=== PATIENT | male | born 1955 | race Caucasian/White ===

== ENCOUNTER 2022-01-05 17:40 | Emergency (ER) | payer SELFPAY ==
[2022-01-05 17:46] VITALS: BP 181/111; PULSE 111; RESP 16; TEMP 37.6; O2SAT 96; BMI 35.5
--- NOTE | 2022-01-05 17:47 | XR_ITS ---
PROCEDURE INFORMATION: Exam: XR Chest Exam date and time: 01/05/2022 6:05 PM Age: 66 years old Clinical indication: Cough TECHNIQUE: Imaging protocol: XR of the chest. Views: 1 view. COMPARISON: No relevant prior studies available. FINDINGS: Lungs: Unremarkable. No consolidation. Pleural spaces: Unremarkable. No pleural effusion. No pneumothorax. Heart/Mediastinum: Mild cardiomegaly Bones/joints: Unremarkable. IMPRESSION: No acute process
--- NOTE | 2022-01-05 17:48 | [facility].EDGENADL ---
ED Disposition Clinical Impression: Hyperglycemia Heat causing collapse Qualifiers: Encounter type: initial encounter Qualified Code(s): T67.1XXA - Heat syncope, initial encounter Disposition: Home, Self-Care Condition on Discharge: Fair Instructions: DI for Hyperglycemia -- Adult Additional Instructions: You have been evaluated for altered mental status, elevated blood glucose and heat exposure. Please monitor your blood sugar closely. Stay hydrated. Follow-up with your primary care doctor. Return to the emergency department at once for any new or worsening symptoms, nausea, vomiting, fusion, elevated blood sugar or any other concerns Referrals: Román Williamson [Primary Care Provider] - Time of Disposition: 20:23 - Critical Care Critical Care Time: No Attestation: On , the high probability of a clinically significant, sudden or life threatening deterioration of the following system(s) required my full and direct attention, intervention and personal management. The time I documented below is in addition to time spent performing reported procedures but includes the following listed in this critical care notation. Medical Decision Making - Medical Records Medical records reviewed: Yes: I reviewed the patient's medical records. - Bon Inquiry Pt receiving controlled substance: No Vital Signs: 01/05/22 17:46 01/05/22 20:38 Temperature 99.7 F H 98.4 F Temperature Source Oral Oral Pulse Rate 91 H Pulse Rate [Apical] 111 H Respiratory Rate 16 16 Blood Pressure 145/85 H Blood Pressure [Right Arm] 181/111 H Blood Pressure Mean [Right Arm] 134 Blood Pressure Source [Right Arm] Automatic Cuff Blood Pressure Position [Right Arm] Sitting 02 Sat by Pulse Oximetry 96 Oxygen Delivery Method Room Air - Lab Data Lab Results 01/05/22 17:47: VBG pH 7.42 H, VBG pCO2 30.8 L, VBG pO2 129.5 H, VBG HCO3 19.6 L, VBG Total CO2 20.5 L, VBG O2 Saturation 98.8 H, VBG Base Excess -4.9 L 01/05/22 17:52: WBC 8.4, RBC 4.10 L, Hgb 9.8 L, Hct 30.1 L, MCV 73.3 L, MCH 23.9 L, MCHC 32.6, RDW 15.2, Plt Count 178, MPV 10.1, Neut % (Auto) 90.3 H, Lymph % (Auto) 4.6 L, Kerr % (Auto) 3.6, Eos % (Auto) 1.2, Baso % (Auto) 0.3, Neut # (Auto) 7.6, Lymph # (Auto) 0.4 L, Kerr # (Auto) 0.3, Eos # (Auto) 0.1, Baso # (Auto) 0.0, Total Counted 100, Neutrophils % (Manual) 85 H, Lymphocytes % (Manual) 12, Monocytes % (Manual) 3, Platelet Estimate Normal, Hypochromasia 2+, Anisocytosis 1+ 01/05/22 17:52: Sodium 132 L, Potassium 4.0, Chloride 98, Carbon Dioxide 19 L, Anion Gap 19.0 H, BUN 15, Creatinine 1.20, Estimated Creat Clear 88, Estimated GFR 61, Est GFR ( Amer) 74, Glucose 570 H*, Calcium 9.1, Total Bilirubin 1.5 H, AST 41, ALT 27, Alkaline Phosphatase 146 H, Total Protein 6.7, Albumin 4.2, Globulin 2.5, Albumin/Globulin Ratio 1.7, Acetone Level Small 01/05/22 20:18: POC Glucose 431 H* Result diagrams: 01/05/22 17:52 01/05/22 17:52 Orders (Tests/Meds): ED MEDICATIONS Discontinued Medications Generic Name Dose Route Start Last Admin Trade Name Yasmany PRN Reason Stop Dose Admin Sodium Chloride 1,000 mls @ 999 mls/hr 01/05/22 18:00 01/05/22 17:55 Sod Chlor 0.9% 1000ml Bag IV 01/05/22 19:00 999 mls/hr .Q1H1M JESUS Administration Sodium Chloride 1,000 mls @ 999 mls/hr 01/05/22 18:30 01/05/22 18:30 Sod Chlor 0.9% 1000ml Bag IV 01/05/22 19:30 999 mls/hr .Q1H1M JESUS Administration Insulin Human Lispro 6 unit 01/05/22 19:21 01/05/22 19:38 Humalog 100 Units/Ml 3ml Vial (Ssi) SQ 01/05/22 19:22 6 unit ONCE ONE Administration Sodium Chloride 10 ml 01/05/22 17:47 Sodium Chloride 0.9% 10ml Flush Syringe IV 01/06/22 05:47 NEEDED PRN Maintain IV Site ORDERS Category Date Time Status Urinalysis and Microscopic Stat Lab 01/05/22 17:47 Ordered Medical Decision Narrative: In summary this is a 66-year-old male with history of medication controlled diabetes presenting to the [facility]
--- NOTE | 2022-01-05 17:56 | PC.NURSE ---
RT notified of vbg order
--- NOTE | 2022-01-05 18:01 | PC.NURSE ---
spoke with pt daughter susan rangel [phone]
[2022-01-05 18:05] LABS: VBG Base Excess -4.9 mmol/L (-2.4-2.3); VBG HCO3 19.6 mmol/L (23-30); VBG Oxygen Saturation 98.8 % (50-70); VBG PCO2 30.8 mmol/L (35-51); VBG PH 7.42 mmol/L (7.31-7.41); VBG PO2 129.5 mmol/L (28-40); VBG Total CO2 20.5 mmol/L (23-27)
[2022-01-05 18:06] LABS: Basophils % 0.3 % (0.1-2.0); Chloride 98 mmol/L (98-107); Eosinophils # 0.1 K/mm3 (0.0-0.4); Eosinophils % 1.2 % (0.1-12.0); Hematocrit 30.1 % (42.0-52.0); Hemoglobin 9.8 g/dL (14.1-18.0); Lymphocytes # 0.4 K/mm3 (0.7-4.5); Lymphocytes % 4.6 % (10-50); Mean Corpuscular HGB Conc 32.6 g/dL (31.8-35.4); Mean Corpuscular Hemoglobin 23.9 pg (27.0-31.2); Mean Corpuscular Volume 73.3 fl (80-94); Mean Platelet Volume 10.1 fl (7.4-10.4); Monocytes # 0.3 K/mm3 (0.1-1.0); Monocytes % 3.6 % (1.7-9.3); Neutrophils # 7.6 K/mm3 (1.8-7.8); Neutrophils % 90.3 % (37.0-80.0); Platelet Count 178 K/mm3 (142-424); Red Cell Distribution Width 15.2 % (11.5-17.5); Sodium 132 mmol/L (136-145); White Blood Count 8.4 K/mm3 (4.8-10.8)
[2022-01-05 18:09] LABS: Alanine Aminotransferase 27 U/L (12-78); Albumin Level 4.2 g/dl (3.5-5.0); Albumin/Globulin Ratio 1.7 (1.1-1.8); Alkaline Phosphatase 146 U/L (38-126); Aspartate Amino Transferase 41 U/L (17-59); Bilirubin,Total 1.5 mg/dl (0.2-1.3); Blood Urea Nitrogen 15 mg/dl (9-20); Calcium 9.1 mg/dl (8.4-10.2); Carbon Dioxide 19 mmol/L (22.0-30.0); Creatinine Clearance Estimated 88 mL/min (50-200); Estimated Glomerular Filt Rate 61 ml/min (>60); GFR (African American) 74 ML/MIN (>60); Globulin 2.5 g/dL (1.3-3.2); Total Protein,Serum 6.7 g/dl (6.3-8.2)
[2022-01-05 18:11] LABS: MANUAL DIFFERENTIAL MANUAL DIFFERENTIAL (MANUAL DIFF)
[2022-01-05 18:13] LABS: Glucose 570 mg/dl (74-100)
[2022-01-05 18:26] LABS: Acetone, Serum (Rapid) Small (None Detect)
--- NOTE | 2022-01-05 18:30 | ECG_ITS ---
APPROVED REPORT Exam: Resting ECG HR:106 bpm ECG Measurements Heart Rate 106 AXES SC 201 P 57 QRSd 92 QRS -40 QT 344 T 30 QTc 406 Conclusion SINUS TACHYCARDIA LEFT AXIS DEVIATION [QRS AXIS < -30] PATTERN CONSISTENT WITH PULMONARY DISEASE INCOMPLETE RIGHT BUNDLE BRANCH BLOCK [90+ ms QRS DURATION, TERMINAL R IN V1/V2, 40+ ms S IN I/aVL/V4/V5/V6] ABNORMAL ECG UNCONFIRMED REPORT Electronically signed by : Glynn Baird MD 01/06/2022 22:17:40
[2022-01-05 19:03] LABS: Anisocytosis 1+; Hypochromasia 2+; Lymphocytes % 12 % (10-50); Monocytes % 3 % (2-9); Neutrophils % 85 % (42-76); Platelet Estimate Normal; Total Cells Counted 100
[2022-01-05 20:26] LABS: POC Glucose,Bedside 431 (70-110)
[2022-01-05 20:38] VITALS: BP 145/85; PULSE 91; RESP 16; TEMP 36.9; O2SAT 96
== END 2022-01-05 20:47 | disposition home or self-care (01) ==
PROVIDERS: Emergency Provider Emergency Medicine; PCP Family Medicine
DX: E11.65 Type 2 diabetes mellitus with hyperglycemia (principal); Z79.4 Long term (current) use of insulin; T67.1XXA Heat syncope, initial encounter
CPT/HCPCS: 71045; 80053; 82009; 82803; 82962; 85007; 85025; 93005; 96360; 96372; 99284